=== PATIENT | female | born 1935 | race Caucasian/White ===

== ENCOUNTER 2017-12-16 16:36 | Inpatient (IN) | payer MEDICARE, OTHER ==
[~2017-12-16] VITALS: Ht 157.5 cm; Wt 72.8 kg
[2017-12-16 18:21] LABS: ALANINE AMINOTRANSFERASE 18 U/L (12-78); ALBUMIN 3.6 g/dL (3.4-5.0); ANION GAP 9 mmol/L (5-15); CALCIUM 8.8 mg/dL (8.5-10.1); CHLORIDE 107 mmol/L (98-107); CREATININE 1.88 mg/dL (0.55-1.02)
[2017-12-16 18:26] LABS: ALKALINE PHOSPHATASE 226 U/L (45-117); BILIRUBIN,TOTAL 0.3 mg/dL (0.2-1.0); TOTAL PROTEIN 7.7 g/dL (6.4-8.2)
[2017-12-16 18:28] LABS: TROPONIN I < 0.015 ng/mL (0.000-0.045)
[2017-12-16 18:54] LABS: MEAN CORPUSCULAR HEMOGLOBIN 26.5 pg (27.0-34.8); MEAN CORPUSCULAR HGB CONC 31.6 g/dL (32.4-35.8); MEAN CORPUSCULAR VOLUME 83.8 fL (80-100); MEAN PLATELET VOLUME 11.8 fL (7.4-10.4); PLATELET COUNT 264 x10^3/uL (130-400); RED CELL DISTRIBUTION WIDTH 18.8 % (9.6-15.2)
[2017-12-16] MEDS ORDERED: SODIUM CHLORIDE 0.9% 1,000ML IVBOLUS ONE (19:00)
[2017-12-16 19:14] LABS: BASOPHILS % (AUTO) 0 % (0-1); EOSINOPHILS % (AUTO) 0 % (1-7); LYMPHOCYTES # (AUTO) 0.48 x10^3/uL (1-3.4); LYMPHOCYTES % (AUTO) 7 % (22-44); MD SCAN; MONOCYTES # (AUTO) 0.12 x10^3/uL (0.2-0.8); MONOCYTES % (AUTO) 2 % (2-9); NEUTROPHILS # (AUTO) 6.64 x10^3/uL (1.8-6.8); NEUTROPHILS % (AUTO) 92 % (42-75)
[2017-12-16 19:15] LABS: MICROSCOPIC INDICATED
[2017-12-16 19:21] LABS: CULTURE INDICATED? YES
[2017-12-16] MEDS ORDERED: CEFTRIAXONE PMX 1GM/50ML 50 ML IVPB ONE (19:30)
[2017-12-16] MEDS ORDERED: CEFTRIAXONE PMX 1GM/50ML 50 ML ONE (19:38)
[2017-12-16] MEDS ORDERED: SODIUM CHLORIDE FLUSH 10ML SYR IVF PRN (20:00)
[2017-12-16] MEDS ORDERED: HEPARIN 5,000 UNITS/ML, 1ML ONE (20:15)
[2017-12-16] MEDS ORDERED: NICOTINE 14MG/24 HR PATCH.TD24 ONE (20:15)
[2017-12-16] MEDS: HEPARIN 5,000 UNITS/ML, 1ML SQ SCH (20:16)
[2017-12-16] MEDS: NICOTINE 14MG/24 HR PATCH.TD24 TD SCH (20:17)
[2017-12-16] MEDS: SODIUM CHLORIDE FLUSH 10ML SYR IVF SCH (20:21)
[2017-12-16] MEDS ORDERED: BISACODYL 10 MG SUPP PR PRN (20:30)
[2017-12-16] MEDS ORDERED: DOCUSATE 100 MG CAPSULE PO PRN (20:30)
[2017-12-16] MEDS ORDERED: POLYETHYLENE GLYCOL 17 GM PACKET PO PRN (20:30)
[2017-12-16] MEDS ORDERED: ONDANSETRON 2MG/ML, 2ML IVPush PRN (20:30)
[2017-12-16 20:50] LABS: HEMOGLOBIN A1C 6.8 % (4.2-6.3)
[2017-12-16 22:00] VITALS: BP 151/87
[2017-12-16] MEDS: INSULIN LISPRO 100 UNITS/ML, PEN SQ-INSULIN SCH (23:09)
[2017-12-17 01:48] VITALS: BP 170/95
[2017-12-17 03:28] VITALS: BP 161/95
[2017-12-17] MEDS: HEPARIN 5,000 UNITS/ML, 1ML SQ SCH ×3 (04:30→20:21)
[2017-12-17] MEDS ORDERED: HALOPERIDOL 5 MG/ML IM ONE (04:30)
[2017-12-17 05:34] LABS: BASOPHILS # (AUTO) 0.03 x10^3/uL (0-0.1); BASOPHILS % (AUTO) 0 % (0-1); EOSINOPHILS # (AUTO) 0.02 x10^3/uL (0-0.4); EOSINOPHILS % (AUTO) 0 % (1-7); LYMPHOCYTES # (AUTO) 1.03 x10^3/uL (1-3.4); LYMPHOCYTES % (AUTO) 18 % (22-44); MD NO; MEAN CORPUSCULAR HEMOGLOBIN 26.4 pg (27.0-34.8); MEAN CORPUSCULAR HGB CONC 31.5 g/dL (32.4-35.8); MEAN CORPUSCULAR VOLUME 83.8 fL (80-100); MEAN PLATELET VOLUME 10.8 fL (7.4-10.4); MONOCYTES # (AUTO) 0.35 x10^3/uL (0.2-0.8); MONOCYTES % (AUTO) 6 % (2-9); NEUTROPHILS # (AUTO) 4.43 x10^3/uL (1.8-6.8); NEUTROPHILS % (AUTO) 76 % (42-75); PLATELET COUNT 239 x10^3/uL (130-400); RED BLOOD COUNT 4.48 x10^6/uL (3.82-5.3)
[2017-12-17 05:45] LABS: CHLORIDE 110 mmol/L (98-107)
[2017-12-17 05:51] LABS: ANION GAP 7 mmol/L (5-15); CALCIUM 8.3 mg/dL (8.5-10.1); CREATININE 1.39 mg/dL (0.55-1.02)
[2017-12-17] MEDS: INSULIN LISPRO 100 UNITS/ML, PEN SQ-INSULIN SCH ×4 (07:00→20:13)
[2017-12-17] MEDS: SODIUM CHLORIDE FLUSH 10ML SYR IVF SCH ×2 (09:00→20:25)
[2017-12-17 10:37] VITALS: BP 144/83
[2017-12-17] MEDS ORDERED: CEFTRIAXONE PMX 1GM/50ML 50 ML IV SCH (17:30)
[2017-12-17 17:56] VITALS: BP 128/77
[2017-12-17 18:34] VITALS: BP 171/84
[2017-12-17] MEDS: hydrALAzine 20 MG/ML, 1ML IVPush PRN ×2 (19:30→20:08)
[2017-12-17] MEDS: NICOTINE 14MG/24 HR PATCH.TD24 TD SCH (20:25)
[2017-12-17 21:13] VITALS: BP 146/78
[2017-12-17] MEDS: ACETAMINOPHEN 325 MG TABLET PO PRN (22:06)
[2017-12-18 02:53] VITALS: BP 133/81
[2017-12-18] MEDS: HEPARIN 5,000 UNITS/ML, 1ML SQ SCH ×3 (05:41→20:30)
[2017-12-18] MEDS: INSULIN LISPRO 100 UNITS/ML, PEN SQ-INSULIN SCH ×4 (07:00→20:31)
[2017-12-18 07:03] VITALS: BP 155/93
[2017-12-18] MEDS: SODIUM CHLORIDE FLUSH 10ML SYR IVF SCH ×2 (08:11→20:31)
[2017-12-18 14:11] VITALS: BP 132/79
[2017-12-18] MEDS: AMLODIPINE 5 MG TABLET PO SCH (16:53)
[2017-12-18 19:41] VITALS: BP 149/94
[2017-12-18] MEDS: SULFAMETH./TRIMETHOPRIM DS 800MG/160MG TABLET PO SCH (20:29)
[2017-12-18] MEDS: NICOTINE 14MG/24 HR PATCH.TD24 TD SCH (20:30)
[2017-12-19] MEDS ORDERED: DIPHENHYDRAMINE 25 MG CAPSULE PO ONE (01:30)
[2017-12-19 01:47] VITALS: BP 137/88
[2017-12-19] MEDS: HEPARIN 5,000 UNITS/ML, 1ML SQ SCH ×2 (05:20→12:25)
[2017-12-19] MEDS: INSULIN LISPRO 100 UNITS/ML, PEN SQ-INSULIN SCH ×3 (07:00→16:00)
[2017-12-19 07:40] VITALS: BP 128/74
[2017-12-19] MEDS: ACETAMINOPHEN 325 MG TABLET PO PRN (07:44)
[2017-12-19] MEDS: SULFAMETH./TRIMETHOPRIM DS 800MG/160MG TABLET PO SCH (07:44)
[2017-12-19] MEDS: AMLODIPINE 5 MG TABLET PO SCH (07:44)
[2017-12-19] MEDS: SODIUM CHLORIDE FLUSH 10ML SYR IVF SCH (07:44)
[2017-12-19] MEDS ORDERED: SULF-169 PO (12:39)
[2017-12-19] MEDS ORDERED: AMLO5TAB2 PO (12:39)
[2017-12-19 14:38] VITALS: BP 122/68
== END 2017-12-19 17:09 | DRG 689 ==
LOC: ED 19:21 → EDIP 19:46 → 3NE 20:55
PROVIDERS: ADMIT Hospitalist; ATTEND Hospitalist
DX: N30.00 Acute cystitis without hematuria (principal); N17.0 Acute kidney failure with tubular necrosis; J98.11 Atelectasis; F02.81 Dementia in other diseases classified elsewhere, unspecified severity, with behavioral disturbance; E11.65 Type 2 diabetes mellitus with hyperglycemia; I50.9 Heart failure, unspecified; I11.0 Hypertensive heart disease with heart failure; G30.1 Alzheimer's disease with late onset; B96.1 Klebsiella pneumoniae [K. pneumoniae] as the cause of diseases classified elsewhere; R62.7 Adult failure to thrive; F17.210 Nicotine dependence, cigarettes, uncomplicated; Z90.5 Acquired absence of kidney; Z90.49 Acquired absence of other specified parts of digestive tract; Z82.0 Family history of epilepsy and other diseases of the nervous system
CPT/HCPCS: 36415; 71045; 76770; 80048; 80053; 81001; 82436; 82570; 82962; 83036; 83880; 84133; 84300; 84484; 85025; 87077; 87086; 87186; 93005; 93306; 99285; J0696; J1644; J0360; J1630; J1815; J7030; Q0163

== ENCOUNTER 2018-01-08 07:35 | Emergency (ER) | payer MEDICARE, OTHER ==
[~2018-01-08] VITALS: Ht 162.6 cm; Wt 70.0 kg
[~2018-01-08 07:35] MED LIST: AMLO5TAB2 PO; SULF-169 PO
[2018-01-08 09:03] LABS: ALBUMIN 2.6 g/dL (3.4-5.0); ANION GAP 7 mmol/L (5-15); CALCIUM 8.2 mg/dL (8.5-10.1); CHLORIDE 112 mmol/L (98-107); CREATININE 1.22 mg/dL (0.55-1.02)
[2018-01-08 09:53] LABS: MEAN CORPUSCULAR HEMOGLOBIN 26.7 pg (27.0-34.8); MEAN CORPUSCULAR HGB CONC 31.7 g/dL (32.4-35.8); MEAN CORPUSCULAR VOLUME 84.2 fL (80-100); RED BLOOD COUNT 4.11 x10^6/uL (3.82-5.3); RED CELL DISTRIBUTION WIDTH 19.7 % (9.6-15.2)
[2018-01-08 09:54] LABS: PLATELET COUNT 113 x10^3/uL (130-400)
[2018-01-08 09:55] LABS: MEAN PLATELET VOLUME 10.5 fL (7.4-10.4)
[2018-01-08 09:56] LABS: MD MORPH REVIEW ONLY
[2018-01-08 09:57] LABS: ANISOCYTOSIS 1+; BASOPHILS # (AUTO) 0.03 x10^3/uL (0-0.1); BASOPHILS % (AUTO) 1 % (0-1); EOSINOPHILS # (AUTO) 0.26 x10^3/uL (0-0.4); EOSINOPHILS % (AUTO) 6 % (1-7); LYMPHOCYTES # (AUTO) 0.53 x10^3/uL (1-3.4); LYMPHOCYTES % (AUTO) 12 % (22-44); MONOCYTES # (AUTO) 0.45 x10^3/uL (0.2-0.8); MONOCYTES % (AUTO) 10 % (2-9); NEUTROPHILS # (AUTO) 3.36 x10^3/uL (1.8-6.8); NEUTROPHILS % (AUTO) 73 % (42-75)
[2018-01-08 09:58] LABS: <PLATELET ESTIMATE> DECREASED; <PLT MORPHOLOGY> NORMAL PLT MORPH; HYPOCHROMIA 1+; OVALOCYTES 1+; POLYCHROMASIA 1+
[2018-01-08] MEDS ORDERED: APIXABAN 5 MG TABLET PO SCH (10:00)
[2018-01-08 10:20] VITALS: BP 140/80
[2018-01-08] MEDS ORDERED: APIXABAN 5 MG TABLET ONE (10:54)
== END 2018-01-08 11:03 | disposition home or self-care (01) ==
LOC: ED 10:55
DX: S80.811A Abrasion, right lower leg, initial encounter (principal); I82.493 Acute embolism and thrombosis of other specified deep vein of lower extremity, bilateral; Z60.2 Problems related to living alone; X58.XXXA Exposure to other specified factors, initial encounter; Y93.89 Activity, other specified; Y92.89 Other specified places as the place of occurrence of the external cause; Y99.8 Other external cause status
CPT/HCPCS: 36415; 71045; 80048; 82040; 85025; 93005; 93970; 99285